=== PATIENT | male | born 1980 | race Caucasian/White ===

== ENCOUNTER 2016-11-14 14:38 | Emergency (ER) | payer SELFPAY ==
[2016-11-14 14:49] VITALS: BP 150/85
--- NOTE | 2016-11-14 15:43 | UC ---
Eugene Lynn Benjamin, scribed for Gregoria Denney MD on 11/14/16 at 1502 . Lower Extremity/Ankle HPI - HPI Summary HPI Summary: 36yo male comes to after a free-fall from 18-feet height on a V-step ladder yesterday 11/13/16 9am. Pt was at his self-employed work site, and while working on the top of the ladder, pts right foot got stuck and caught in between the ladder and subsequently free-fell onto the ground in right benites direction. He subsequently rolled down a four foot dirt embankment. Pt reports right leg pain , right rib pain, right armpit soreness. Denies hematuria or neck pain., no LOC. Pt has an abrasion on his right izaguirre. Pt states he had a traumatic PTX at age 21 on the left. - History of Current Complaint Chief Complaint: UCTrauma Stated Complaint: LEG INJURY Hx Obtained From: Patient, Family/Garment Finisher - girlfriendKathryn Onset/Duration: Sudden Onset, Lasting Days - 1 day, Still Present Severity Initially: Moderate Severity Currently: Moderate Pain Intensity: 8 Pain Scale Used: 0-10 Numeric Aggravating Factor(s): Standing, Ambulation Alleviating Factor(s): Rest Able to Bear Weight: No Related History: Occupational Injury - Allergies/Home Medications Allergies/Adverse Reactions: Allergies Allergy/AdvReac Type Severity Reaction Status Date / Time No Known Allergies Allergy Verified 11/14/16 14:50 Home Medications: Home Medications NK [No Home Medications Reported] 11/14/16 [History Confirmed 11/14/16] PMH/Surg Hx/FS Hx/Imm Hx Previously Healthy: Yes - pt denies any PMHx - Surgical History Surgical History: Yes Surgery Procedure, Year, and Place: WISDOM TOOTH EXTRACTION - Family History Known Family History: Positive: Other - melanoma grandfather. - Social History Occupation: Employed Full-time Lives: With Family Alcohol Use: Occasionally Substance Use Type: None Smoking Status (MU): Light Every Day Tobacco Smoker - Immunization History Most Recent Tetanus Shot: Unknown Review of Systems Constitutional: Negative Skin: Negative Eyes: Negative ENT: Negative Respiratory: Negative Cardiovascular: Negative Gastrointestinal: Negative Genitourinary: Negative Motor: Negative Neurovascular: Negative Musculoskeletal: Arthralgia - right leg, right rib, and right armpit pain Neurological: Negative Psychological: Negative All Other Systems Reviewed And Are Negative: Yes Physical Exam Triage Information Reviewed: Yes Appearance: Well-Appearing, Well-Nourished, Pain Distress - moderate Vital Signs: Initial Vital Signs Temp 98.1 F 11/14/16 14:45 Pulse 77 11/14/16 14:45 Resp 12 11/14/16 14:45 BP 150/85 11/14/16 14:45 Pulse Ox 100 11/14/16 14:45 Vital Signs Reviewed: Yes Eyes: Positive: Conjunctiva Clear ENT: Positive: Hearing grossly normal. Negative: Muffled/hoarse voice Neck: Positive: Supple, Nontender Respiratory: Positive: Lungs clear, Normal breath sounds, No respiratory distress, No accessory muscle use Cardiovascular: Positive: RRR, No Murmur, Pulses Normal, Brisk Capillary Refill Abdomen Description: Positive: Nontender, No Organomegaly, Soft. Negative: CVA Tenderness (R), CVA Tenderness (L), Distended, Guarding, Hernia @, Hepatomegaly , McBurney's Point Tenderness, Peritoneal Signs, Pulsatile Mass, Splenomegaly Bowel Sounds: Positive: Present Musculoskeletal: Positive: ROM Limited @ - right leg,due to pain, Other: - Tenderness and swelling on the dorsum of the right leg with 10cm abrasion. Right rib tenderness.. Negative: No Edema Neurological: Positive: Alert, Muscle Tone Normal Psychological: Positive: Age Appropriate Behavior Skin: Positive: Other - Abrasion on the dorsum of the right leg. Right rib tenderness.. Negative: rashes Re-Evaluation - Re-Evaluation First Eval Re-Evaluation Time: 15:30 - Pt refuses [place] collar and ambulance transport, GF Kathryn witnesses and Marian Urrutia RN and I discuss need for ambulance transfer and risks of signing out AMA. Pt signs AMA. Change: Unchanged Lower Extremity Course/Dx - Course Course Of Treatment: Reviewed pt's medications list and allergies. High Blood pressure noted. Discussed with Dr. Arroyo (ED) at [facility] for transfer at 15:22. She recommends transfer via EMS. - Differential Dx/Diagnosis Differential Diagnosis/HQI/PQRI: Compartment Syndrome, Contusion, Fracture ( Closed), Sprain, Strain Provider Diagnoses: Trauma, fall from 18-feet. Right leg pain. Right rib pain. High blood pressure without diagnosis of hypertension. Discharge - Discharge Plan Condition: Guarded Disposition: AGAINST MEDICAL ADVICE Referrals: George Coates MD [Primary Care Provider] - The documentation as recorded by the Eugene kent Benjamin accurately reflects the service I personally performed and the decisions made by , Gregoria Denney MD.
== END 2016-11-14 15:35 | disposition left against medical advice (07) ==
LOC: UCEAST 14:38
DX: M79.604 Pain in right leg (principal); T14.90 Injury, unspecified; R07.81 Pleurodynia; W11.XXXA Fall on and from ladder, initial encounter; Y93.89 Activity, other specified; Y92.69 Other specified industrial and construction area as the place of occurrence of the external cause; Y99.0 Civilian activity done for income or pay; Z72.0 Tobacco use; R03.0 Elevated blood-pressure reading, without diagnosis of hypertension
CPT/HCPCS: 99201; G0463